=== PATIENT | male | born 1985 | race Hispanic/Latino ===

== ENCOUNTER 2018-05-17 10:30 | Emergency (ER) | payer SELFPAY ==
--- NOTE | 2018-05-17 11:43 | RAD ---
LUMBAR SPINE 3 VIEWS: Date: 05/17/18 HISTORY: Trauma. Pain. COMPARISON: None. FINDINGS: There are five non-rib bearing lumbar-type vertebrae. No acute fracture or malalignment of the lumbar spine. No listhesis. Mild degenerative posterior disc space height loss at L5-S1. Transverse processes appear to be intact . IMPRESSION: No acute fracture or malalignment of the lumbar spine. POS: [facility]
--- NOTE | 2018-05-17 11:45 | CT ---
NONCONTRAST CT FACIAL BONES: Date: 05-17-18 History: Trauma. Patient fell off 10 foot roof. Knee hit patient in nose. Nose bleed and headache. FINDINGS: There are non-displaced fractures involving each nasal bone with mild overlying subcutaneous soft tis jacobo swelling present. There is irregularity involving the bony nasal septum which also may represent fracture of the bony nasal septum. There is opacification of several ethmoidal air cells bilaterally with mucosal thickening seen in th e bilateral maxillary antra, each sphenoid sinus, as well as involving each frontal sinus. Mastoid ai r cells are clear. The orbits are normal and symmetric in appearance bilaterally. IMPRESSION: 1. Nondisplaced fractures involving each nasal bone with overlying soft tissue swelling. 2. Fracture of the bony nasal septum. 3. Sinus disease. POS: [facility]
--- NOTE | 2018-05-17 11:47 | CT ---
CT BRAIN WITHOUT CONTRAST: Date: 05/17/18 HISTORY: Trauma, headache, nosebleed; no loss of consciousness. FINDINGS: No evidence of infarct, hemorrhage, midline shift, or abnormal extra-axial fluid collections are seen . The ventricular size is normal and the basilar cisterns are patent. The bony calvarium is intact. T here is fluid in the ethmoid air cells. Bilateral nasal bone fractures are noted. IMPRESSION: No CT evidence of acute intracranial process. POS: [facility]
== END 2018-05-17 11:45 | disposition home or self-care (01) ==
LOC: SCSER 10:30
DX: S02.2XXA Fracture of nasal bones, initial encounter for closed fracture (principal); S30.811A Abrasion of abdominal wall, initial encounter; W13.2XXA Fall from, out of or through roof, initial encounter
CPT/HCPCS: 70450; 70486; 72100